=== PATIENT | male | born 1975 | race American Indian/Alaskan Native ===

== ENCOUNTER 2022-01-31 12:51 | Emergency (ER) | payer SELFPAY ==
--- NOTE | 2022-01-31 15:39 | Emergency Department Report ---
ED General Adult HPI - General Chief complaint: Eye Problems Stated complaint: SEVERE EYE PAIN PUI?: No Time Seen by Provider: 01/31/22 15:14 Source: patient Mode of arrival: Ambulatory Limitations: No Limitations - History of Present Illness Initial comments: This is a pleasant 46 year old male with medical history of hypertension who is currently not on any medication came in today with concern of itchy eyes bilaterally states he think its allergy related as they are also watery. Patient denies any other symptoms. Denies fever, chill, night sweats, dizziness, lightheaded, blurry vision, ear pain, sore throat, chest pain, palpitation, dyspnea, cough, abdominal discomfort, n/v/d/c, dysuria, myalgia, arthralgia, new rash/lesion, and heat or cold intolerance. - Related Data Previous Rx's Medication Instructions Recorded Last Taken Type Olopatadine HCl [Pataday] 5 ml OP DAILY 5 Days #1 drops 01/31/22 Unknown Rx Allergies Allergy/AdvReac Type Severity Reaction Status Date / Time No Known Allergies Allergy Verified 01/31/22 13:03 ED Review of Systems ROS: Stated complaint: SEVERE EYE PAIN Other details as noted in HPI Comment: All other systems reviewed and negative Constitutional: no symptoms reported Eyes: eye discharge. denies: eye pain, vision change ENT: as per HPI Respiratory: no symptoms reported Cardiovascular: as per HPI Endocrine: no symptoms reported Gastrointestinal: as per HPI Genitourinary: as per HPI Musculoskeletal: as per HPI Skin: as per HPI Neurological: as per HPI Psychiatric: as per HPI Hematological/Lymphatic: as per HPI ED Past Medical Hx - Past Medical History Previous Medical History?: No - Medications Home Medications: Home Medications Medication Instructions Recorded Confirmed Last Taken Type Olopatadine HCl [Pataday] 5 ml OP DAILY 5 Days #1 drops 01/31/22 Unknown Rx ED Physical Exam - General Limitations: No Limitations General appearance: alert, in no apparent distress - Head Head exam: Present: atraumatic, normocephalic, normal inspection - Eye Eye exam: Present: normal appearance, PERRL, EOMI Pupils: Present: normal accommodation - ENT ENT exam: Present: normal exam, normal orophraynx, mucous membranes moist - Neck Neck exam: Present: normal inspection, full ROM - Respiratory Respiratory exam: Present: normal lung sounds bilaterally, respiratory distress - Cardiovascular Cardiovascular Exam: Present: regular rate, normal rhythm, bradycardia (Asymptomatic and chronotropic competent (patient bicycle in the air and heart rate went up)) - GI/Abdominal GI/Abdominal exam: Present: soft - Extremities Exam Extremities exam: Present: normal inspection, full ROM, normal capillary refill - Back Exam Back exam: Present: normal inspection, full ROM - Neurological Exam Neurological exam: Present: alert, altered, oriented X3, CN II-XII intact - Psychiatric Psychiatric exam: Present: normal affect, normal mood - Skin Skin exam: Present: warm, dry, intact ED Course Vital Signs 01/31/22 14:43 Pulse Rate 50 L Respiratory 18 Rate Blood Pressure 226/130 [Right] O2 Sat by Pulse 99 Oximetry - Reevaluation(s) Reevaluation #1: 01/31/22 15:41 I HAVE SPOKE TO THE PATIENT REGARDING THIS BLOOD PRESSURE IS ELEVATED AND ITS IN HYPERTENSIVE CRISIS RANGE WHICH RIGHT NOW I DON'T KNOW IF ITS HYPERTENSIVE EMERGENCY VS URGENCY UNLESS I RULE OUT 'END ORGAN DAMAGE' WITH FURTHER TESTING AND PATIENT UNDERSTOOD BUT DECLINE THE OFFER STATES HE HAS TO GO; PATIENT STATES IF WITHOUT WORK UP, HE MAY HAVE STROKE OR EVEN MYOCARDIAL INFRACTION AND PATIENT DECIDED TO SIGN OUT AMA AFTER I HAVE TIRED TO ENCOURAGE/RECOMMEND HIM TO STAY. PATIENT LEFT AMA; I WILL STILL PRESCRIBE EYE DROP FOR HIM. Critical care attestation.: If time is entered above; I have spent that time in minutes in the direct care of this critically ill patient, excluding procedure time. ED Disposition Clinical Impression: Hypertensive crisis, unspecified, Elevated blood pressure reading, Itchy eyes, Bradycardia Disposition: 07 LEFT AGAINST MEDICAL ADVICE Is pt being admited?: No Does the pt Need Aspirin: No Condition: Stable Instructions: Hypertension (ED) Prescriptions: Olopatadine HCl [Pataday] 5 ml OP DAILY 5 Days #1 drops Forms: AMA Form Time of Disposition: 15:45
[2022-01-31 16:25] VITALS: BP 200/97
--- NOTE | 2022-02-03 10:21 | Electrocardiograph Report ---
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
== END 2022-01-31 16:24 | disposition left against medical advice (07) ==
LOC: ED 12:51
DX: I16.9 Hypertensive crisis, unspecified (principal); I10 Essential (primary) hypertension; H57.89 Other specified disorders of eye and adnexa; R00.1 Bradycardia, unspecified; Z79.899 Other long term (current) drug therapy
CPT/HCPCS: 93005; 99282

== ENCOUNTER 2022-03-03 17:02 | Emergency (ER) | payer BC ==
[2022-03-03 17:43] VITALS: BP 243/146
[2022-03-03] MEDS ORDERED: ASPIRIN 325 MG TAB PO ONE (18:02)
--- NOTE | 2022-03-03 18:02 | Emergency Department Report ---
Chief Complaint: High BP Stated Complaint: HIGH BLOOD PRESSURE - HPI History of Present Illness: 46-year-old male presenting to the emergency department with elevated blood pressure off medicines for over a year. Symptoms associated with slight headache, shortness of breath with activity. Previous prescribed amlodipine hydrochlorothiazide which is no longer taking has not followed up outpatient with PCP since his last ED visit f. otherwise ambulates steadily no focal weakness. - Exam Vital Signs: Vital Signs 03/03/22 17:40 Temperature 98.9 F Pulse Rate 67 Respiratory 18 Rate Blood Pressure 243/146 [Right] O2 Sat by Pulse 98 Oximetry MSE screening note: Focused history and physical exam performed. 46 In the setting of a significantly high volume and record number of patients presenting to the emergency department and the fact that we have a limited space to see patients we have implemented the provider in triage protocol this allows an expedited initial exam of patients that might otherwise have left without being seen or who would wait longer than usual to be seen by provider. I interviewed the patient and performed a limited physical exam. This patient is a pulled from the waiting room to triage room for an initial assessment of adrenal studies and then returned to the waiting room pending results of the studies. The ultimate final evaluation and disposition may be performed by another provider depending on room and provider availability.: ED Disposition for MSE Condition: Stable
--- NOTE | 2022-03-04 09:41 | Electrocardiograph Report ---
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
== END 2022-03-04 04:40 | disposition left against medical advice (07) ==
LOC: ED 17:02
DX: I10 Essential (primary) hypertension (principal); Z53.21 Procedure and treatment not carried out due to patient leaving prior to being seen by health care provider
CPT/HCPCS: 93005